=== PATIENT | female | born 1985 | race Caucasian/White ===

== ENCOUNTER 2018-02-19 08:21 | Observation (INO) ==
--- NOTE | 2018-02-19 09:24 | ED ---
HPI General Chief complaint: Respiratory Symptoms Stated complaint: Chest Pain/Vomiting Time Seen by Provider: 02/19/18 09:22 History of Present Illness HPI narrative: Patient is a 32-year-old female presents emergency department for evaluation of epigastric pain which started yesterday during lunch when she was eating chicken fingers. She states she threw up once at that time. She started to feel better and this morning during her morning coffee she threw up 2 more times an additional time while in the emergency department. States she has never had pain like this before. Is worsened by food. She has not tried anything to relieve her symptoms as of yet. No surgeries on her abdomen for otherwise fairly healthy. Per her by she was looking cool and clammy and she was referred to the emergency department for the possibility could be her heart. She has no family history of early heart disease, she is a cigarette smoker but no other risk factors. Section denies any respiratory complaints. Onset (ago): day(s) Location: abdomen Severity: moderate Quality: stabbing Pain Consistency: intermittent Associated symptoms: nausea/vomiting Related Data Home Medications Medication Instructions Recorded Confirmed citalopram 40 mg PO DAILY 02/19/18 02/19/18 clonazepam 0.5 mg PO TID PRN 02/19/18 02/19/18 Allergies Allergy/AdvReac Type Severity Reaction Status Date / Time No Known Allergies Allergy Unverified 02/19/18 08:30 Review of Systems Except as stated in HPI: all other systems reviewed are negative PMFSH Medical History Medical History Patient denies medical problems (Acute) Anxiety (Acute) Surgical History Surgical History No history of previous surgery (Acute) Family History Family History Other Family history of breast cancer Social History Social History Substance History: No History of Abuse Second Hand Smoke Exposure: Yes Smoking Status: Current every day smoker Tobacco Type: Cigarettes How Often Do You Have a Drink Containing Alcohol: 2 to 4 times a month Recent Travel in [facility] within the Last 8 Weeks: No Recent Out of Country Travel within the Last 8 Weeks: No Substance Abuse Detail Marijuana: Substance Use Status: Active Substance Frequency: weekends Immunization History Tetanus Immunization: Unsure Hx Influenza Vaccine This Season: No Exam Narrative Exam Narrative: GENERAL: Well-developed and nourished no obvious distress SKIN: Focused skin assessment warm/dry. HEAD: Atraumatic. Normocephalic. EYES: Pupils equal and round. No scleral icterus. No injection or drainage. ENT: No nasal bleeding or discharge. Mucous membranes pink and moist. NECK: Trachea midline. No JVD. CARDIOVASCULAR: Regular rate and rhythm. No murmur appreciated. RESPIRATORY: No accessory muscle use. Clear to auscultation. Breath sounds equal bilaterally. GASTROINTESTINAL: Abdomen soft, minimal tenderness in the epigastric region without any rebound or percussive tenderness, nondistended. Hepatic and splenic margins not palpable. MUSCULOSKELETAL: No obvious deformities. No clubbing. No cyanosis. No edema. NEUROLOGICAL: Awake and alert. No obvious cranial nerve deficits. Motor grossly within normal limits. Normal speech. PSYCHIATRIC: Appropriate mood and affect; insight and judgment normal. Course Initial Documented Vital Signs Temperature 97.8 F 02/19/18 08:25 Pulse Rate 89 02/19/18 08:25 Respiratory Rate 16 02/19/18 08:25 Blood Pressure 128/65 02/19/18 08:25 Pulse Oximetry 100 02/19/18 08:25 Last Documented Vital Signs Temperature 97.8 F 02/19/18 17:26 Pulse Rate 52 L 02/19/18 17:26 Respiratory Rate 16 02/19/18 17:26 Blood Pressure 110/68 02/19/18 17:26 Pulse Oximetry 100 02/19/18 08:25 Medical Decision Making MDM Narrative Medical decision making narrative: MDM: High Patient room to the emergency department, she appears significantly uncomfortable, she has multiple episodes of emesis in the emergency department, she did not respond to Zofran ODT, Phenergan, a dose of Reglan was given. Admission, a second dose of morphine was also given. CT the abdomen does show some inflammation in the right upper quadrant but no obvious gallstones. Lipase elevated. Discussed with Dr. Banuelos for admission. On further history the patient does states she had 2 shots in a drink last night, she had previously drank a lot heavier but does not consider herself an alcoholic. She has never had pancreatitis before Final diagnosis is acute pancreatitis peer Differential Diagnosis Differential Diagnosis: Pancreatitis, gastritis, gastroenteritis, cholecystitis peer Lab Data Result diagrams: 02/19/18 10:15 02/19/18 10:15 Lab Results 02/19/18 02/19/18 02/19/18 Range/Units 10:15 10:15 10:15 WBC 7.7 (4.0-11.0) th/mm3 RBC 4.99 (4.00-5.30) mil/mm3 Hgb 15.7 H (11.6-15.3) gm/dL Hct 45.9 (35.0-46.0) % MCV 91.8 (80.0-100.0) fL MCH 31.5 (27.0-34.0) pg MCHC 34.3 (32.0-36.0) % RDW 13.6 (11.6-17.2) % Plt Count 185 (150-450) th/mm3 MPV 8.9 (7.0-11.0) fL Neut % (Auto) 69.0 (16.0-70.0) % Lymph % (Auto) 19.9 (9.0-44.0) % [place] % (Auto) 9.3 H (0.0-8.0) % Eos % (Auto) 1.5 (0.0-4.0) % Baso % (Auto) 0.3 (0.0-2.0) % Neut # (Auto) 5.3 (1.8-7.7) th/mm3 Lymph # (Auto) 1.5 (1.0-4.8) th/mm3 [place] # (Auto) 0.7 (0.0-0.9) th/mm3 Eos # (Auto) 0.1 (0.0-0.4) th/mm3 Baso # (Auto) 0.0 (0.0-0.2) th/mm3 WBC Differential . Differential Comment Auto diff final Sodium 141 (136-145) meq/L Potassium 3.8 (3.5-5.1) meq/L Chloride 107 (98-107) meq/L Carbon Dioxide 24.0 (21.0-32.0) meq/L Anion Gap 10 (5-15) meq/L BUN 7 (7-18) mg/dL Creatinine 0.80 (0.50-1.00) mg/dL Estimated GFR 83 L (>89) mL/min Random Glucose 81 (74-106) mg/dL Calcium 9.2 (8.5-10.1) mg/dL Total Bilirubin 0.6 (0.2-1.0) mg/dL Direct Bilirubin (0.0-0.2) mg/dL Indirect Bilirubin (0.0-0.8) mg/dL AST 13 L (15-37) U/L ALT 18 (10-53) U/L Alkaline Phosphatase 66 (45-117) U/L Troponin I Less than 0.02 L (0.02-0.05) ng/mL C-Reactive Protein (0.00-0.30) mg/dL Total Protein 7.5 (6.4-8.2) g/dL Albumin 4.0 (3.4-5.0) g/dL Triglycerides (42-150) mg/dL Lipase 937 H (73-393) U/L Urine Color (Yellw/Straw) Urine Clarity (Clear) Urine pH (5.0-8.5) Ur Specific [place] (1.002-1.035) Urine Protein (Neg-Trace) mg/dL Urine Glucose (UA) (Negative) mg/dL Urine Ketones (Negative) mg/dL Urine Occult Blood (Negative) Urine Nitrate (Negative) Urine Bilirubin (Negative) Urine Urobilinogen (Less than 2) mg/dL Ur Leukocyte Esterase (Negative) Urine RBC (0-3) /hpf Urine WBC (0-5) /hpf Ur Squamous Epith Cells (0-5) /hpf Hyaline Casts (0-3) /lpf Urine Mucus (Occasional) /lpf Micro UA Comment Urine Culture Comments 02/19/18 02/19/18 02/19/18 Range/Units 10:30 16:13 16:13 WBC (4.0-11.0) th/mm3 RBC (4.00-5.30) mil/mm3 Hgb (11.6-15.3) gm/dL Hct (35.0-46.0) % MCV (80.0-100.0) fL MCH (27.0-34.0) pg MCHC (32.0-36.0) % RDW (11.6-17.2) % Plt Count (150-450) th/mm3 MPV (7.0-11.0) fL Neut % (Auto) (16.0-70.0) % Lymph % (Auto) (9.0-44.0) % [place] % (Auto) (0.0-8.0) % Eos % (Auto) (0.0-4.0) % Baso % (Auto) (0.0-2.0) % Neut # (Auto) (1.8-7.7) th/mm3 Lymph # (Auto) (1.0-4.8) th/mm3 [place] # (Auto) (0.0-0.9) th/mm3 Eos # (Auto) (0.0-0.4) th/mm3 Baso # (Auto) (0.0-0.2) th/mm3 WBC Differential Differential Comment Sodium (136-145) meq/L Potassium (3.5-5.1) meq/L Chloride (98-107) meq/L Carbon Dioxide (21.0-32.0) meq/L Anion Gap (5-15) meq/L BUN (7-18) mg/dL Creatinine (0.50-1.00) mg/dL Estimated GFR (>89) mL/min Random Glucose (74-106) mg/dL Calcium 8.4 L D (8.5-10.1) mg/dL Total Bilirubin 0.6 (0.2-1.0) mg/dL Direct Bilirubin 0.2 (0.0-0.2) mg/dL Indirect Bilirubin 0.4 (0.0-0.8) mg/dL AST 11 L (15-37) U/L ALT 16 (10-53) U/L Alkaline Phosphatase 70 (45-117) U/L Troponin I (0.02-0.05) ng/mL C-Reactive Protein Less than 0.29 (0.00-0.30) mg/dL Total Protein 7.0 (6.4-8.2) g/dL Albumin 4.0 (3.4-5.0) g/dL Triglycerides 71 (42-150) mg/dL Lipase (73-393) U/L Urine Color Yellow (Yellw/Straw) Urine Clarity Hazy H (Clear) Urine pH 6.0 (5.0-8.5) Ur Specific [place] 1.020 (1.002-1.035) Urine Protein Negative (Neg-Trace) mg/dL Urine Glucose (UA) Negative (Negative) mg/dL Urine Ketones Trace H (Negative) mg/dL Urine Occult Blood Negative (Negative) Urine Nitrate Negative (Negative) Urine Bilirubin Negative (Negative) Urine Urobilinogen 2.0 H (Less than 2) mg/dL Ur Leukocyte Esterase Negative (Negative) Urine RBC 1 (0-3) /hpf Urine WBC 2 (0-5) /hpf Ur Squamous Epith Cells 2 (0-5) /hpf Hyaline Casts 3 (0-3) /lpf Urine Mucus Many H (Occasional) /lpf Micro UA Comment Culture not ind Urine Culture Comments Culture not ind Imaging Data Radiologist's impression: ITS Impressions Chest X-Ray 02/19/18 00:00 CONCLUSION: No acute intrathoracic disease. Abdomen/Pelvis CT 02/19/18 11:40 CONCLUSION: 1. Mild nonspecific periportal edema. 2. Well-defined 3 cm right adnexal cyst. This is most likely a right ovarian cyst. No definite free fluid in the cul-de-sac. 3. IUD in the uterus. Discharge Plan Discharge Disposition Patient Disposition: 30 Still Patient Physicians Team ED Provider: Sam Spain Primary Care Provider: Figueroa Malone Attending Provider: Arjun Banuelos Status ED Status: Left Department Discharge Information Discharge Date/Time: 02/19/18 15:58
[2018-02-19] MEDS ORDERED: Aluminum/Magnesium/Simethacone Susp 30 ML UDC PO ONE (10:06)
[2018-02-19 10:38] LABS: Baso % (Auto) 0.3 % (0.0-2.0); Eos # (Auto) 0.1 th/mm3 (0.0-0.4); Eos % (Auto) 1.5 % (0.0-4.0); Hematocrit 45.9 % (35.0-46.0); Hemoglobin 15.7 gm/dL (11.6-15.3); Lymph # (Auto) 1.5 th/mm3 (1.0-4.8); Lymph % (Auto) 19.9 % (9.0-44.0); Mean Corpuscular HGB Conc 34.3 % (32.0-36.0); Mean Corpuscular Hemoglobin 31.5 pg (27.0-34.0); Mean Corpuscular Volume 91.8 fL (80.0-100.0); Mean Platelet Volume 8.9 fL (7.0-11.0); Mono # (Auto) 0.7 th/mm3 (0.0-0.9); Mono % (Auto) 9.3 % (0.0-8.0); Neut # (Auto) 5.3 th/mm3 (1.8-7.7); Platelet Count 185 th/mm3 (150-450); Red Blood Count 4.99 mil/mm3 (4.00-5.30); Red Cell Distribution Width 13.6 % (11.6-17.2); White Blood Count 7.7 th/mm3 (4.0-11.0)
[2018-02-19] MEDS ORDERED: Ketorolac Inj 30 MG/ML (IVP) Vial IV.PUSH ONE (10:57)
[2018-02-19 11:10] LABS: Alanine Aminotransferase 18 U/L (10-53)
[2018-02-19 11:12] LABS: Alkaline Phosphatase 66 U/L (45-117); Total Protein 7.5 g/dL (6.4-8.2)
[2018-02-19 11:13] LABS: Anion Gap 10 meq/L (5-15); Aspartate Aminotransferase 13 U/L (15-37); Blood Urea Nitrogen 7 mg/dL (7-18); Calcium 9.2 mg/dL (8.5-10.1); Chloride 107 meq/L (98-107); Glomerular Filtration Rate 83 mL/min (>89); Glucose,Random 81 mg/dL (74-106); Lipase 937 U/L (73-393); Potassium 3.8 meq/L (3.5-5.1); Sodium 141 meq/L (136-145)
[2018-02-19 11:13] LABS: Bilirubin,Urine Negative (Negative); Clarity,Urine Hazy (Clear); Color,Urine Yellow (Yellw/Straw); Glucose,Urine (UA) Negative (Negative); Hyaline Casts,Urine 3 /lpf (0-3); Leukocyte Esterase,Urine Negative (Negative); Mucus,Urine Many /lpf (Occasional); Nitrite,Urine Negative (Negative); Squamous Epithelial Cell,Urine 2 /hpf (0-5)
[2018-02-19] MEDS ORDERED: Morphine Inj 4 MG/ML Vial IV.PUSH ONE ×2 (11:55→15:14)
--- NOTE | 2018-02-19 15:25 | XR ---
EXAM DATE: 02/19/2018 3:16 PM EDT AGE/SEX: 32 years / Female INDICATIONS: Cough. CLINICAL DATA: This is the patient's initial encounter. Patient reports that signs and symptoms have been present for 1 day and indicates a pain score of 0/10. MEDICAL/SURGICAL HISTORY: None. . Umbilical hernia repair COMPARISON: No prior exams available for comparison. FINDINGS: A single AP view of the chest demonstrates the lungs to be symmetrically aerated without evidence of mass, infiltrate or effusion. The cardiomediastinal contours are unremarkable. Osseous structures a re intact. CONCLUSION: No acute intrathoracic disease. Electronically signed by: Anant Bloom MD 02/19/2018 3:24 PM EDT
[2018-02-19] MEDS: Morphine Sulfate Inj 8 MG/ML Vial IV.PUSH PRN (15:28)
[2018-02-19 17:09] LABS: Calcium 8.4 mg/dL (8.5-10.1); Triglycerides 71 mg/dL (42-150)
--- NOTE | 2018-02-19 17:56 | ECG ---
Date Performed: 02/19/2018 Time Performed: 08:35:17 PTAGE: 32 years EKG: Sinus rhythm POSSIBLE LEFT ATRIAL ENLARGEMENT BORDERLINE ECG NO PREVIOUS TRACING DOCTOR: Mackenzie Hudson Interpretating Date/Time 02/19/2018 17:54:59
--- NOTE | 2018-02-19 18:25 | P.HPIM ---
History of Present Illness Primary Care Physician: Figueroa Malone DO History of Present Illness: HPI narrative: Patient is a 32-year-old female presents emergency department for evaluation of epigastric pain which started yesterday during lunch when she was eating chicken fingers. She states she threw up once at that time. She started to feel better and this morning during her morning coffee she threw up 2 more times an additional time while in the emergency department. States she has never had pain like this before. Is worsened by food. She has not tried anything to relieve her symptoms as of yet. No surgeries on her abdomen for otherwise fairly healthy. Per her by she was looking cool and clammy and she was referred to the emergency department for the possibility could be her heart. She has no family history of early heart disease, she is a cigarette smoker but no other risk factors. Review of Systems Constitutional: Denies anorexia, Denies body ache(s), Denies chills, Denies fever(s), Denies night sweats, Denies poor appetite, Denies weight gain, Denies weight loss Eyes: Denies blind spots, Denies blurry vision, Denies change in vision, Denies double vision, Denies discharge, Denies loss of peripheral vision, Denies loss of vision, Denies other visual disturbances, Denies pain Ears, Nose, Mouth, and Throat: Denies bleeding gums, Denies difficulty swallowing, Denies dizziness, Denies headache(s), Denies hearing loss, Denies pain with swallowing, Denies poor balance, Denies ringing in the ears, Denies sore throat, Denies throat swelling, Denies tongue swelling Cardiovascular: Denies chest pain, Denies excessive sweating, Denies fainting, Denies fast heart rate, Denies generalized swelling, Denies irregular heart rhythm, Denies leg swelling, Denies lightheadedness, Denies slow heart rate Respiratory: Denies cough, Denies shortness of breath, Denies snoring, Denies wheezing Gastrointestinal: Reports abdominal pain, Reports nausea, Reports vomiting, Denies belching, Denies black, tarry stools, Denies bright, red blood in stools , Denies change in bowel habits, Denies change in stools, Denies coffee ground vomit, Denies constipation, Denies cramping, Denies difficulty swallowing, Denies heartburn, Denies incontinent of stools, Denies loose stools, Denies pain with swallowing, Denies vomiting blood Genitourinary: Denies abnormal vaginal bleeding, Denies blood in urine, Denies difficulty starting urination, Denies difficulty urinating, Denies frequent nighttime urination, Denies painful urination, Denies pelvic pain, Denies side pain, Denies urinary incontinence, Denies urinary hesitancy, Denies urinary urgency Musculoskeletal: Denies abnormal walking, Denies back pain, Denies body aches, Denies decreased muscle mass, Denies joint pain, Denies joint swelling, Denies muscle weakness, Denies neck pain, Denies numbness, Denies stiffness, Denies tingling Skin/Breast: Denies bleeding lesions, Denies change in skin color, Denies changing lesions, Denies itching, Denies lesions, Denies new lesions, Denies non -healing lesions, Denies redness, Denies sensitivity to light, Denies rash, Denies skin pain, Denies skin swelling, Denies skin ulcer, Denies sores, Denies unusual bruising, Denies wounds, Denies yellowing of the skin Neurologic: Denies abnormal hearing, Denies abnormal movements, Denies abnormal speech, Denies abnormal walking, Denies behavioral changes, Denies burning sensations, Denies confusion, Denies dizziness, Denies fainting, Denies frequent falls, Denies headache(s), Denies lack of coordination, Denies localized weakness, Denies loss of vision, Denies memory loss, Denies numbness, Denies other visual disturbances, Denies radiating pain, Denies restless legs, Denies convulsions, Denies seizure-like activity, Denies sensory deficit, Denies tingling/numbness/burning sensations, Denies tremor(s), Denies unsteadiness, Denies weakness Psychiatric: Denies abnormal sleep pattern, Denies anxiety, Denies behavioral changes, Denies change in appetite, Denies confusion, Denies depression, Denies difficulty concentrating, Denies hearing things others do not hear, Denies irritability, Denies lack of enjoyment, Denies memory loss, Denies mood swings, Denies panic attacks, Denies paranoia, Denies seeing things others do not see, Denies thoughts of hurting/killing others, Denies thoughts of hurting/killing yourself Endocrine: Denies cold intolerance, Denies excessive sweating, Denies fatigue, Denies flushing, Denies heat intolerance, Denies increased hunger, Denies increased thirst, Denies increased urination, Denies rapid, pounding, or irregular heartbeat Hematologic/Lymphatic: Denies easy bleeding, Denies easy bruising, Denies enlarged lymph nodes Allergic/Immunologic: Denies hives, Denies lip swelling, Denies throat swelling , Denies wheezing PMFSH - History History Provided By: Patient - Medical History Medical History: Medical History (Last Updated 02/19/18 @ 09:18 by Yusef Aquino RN) Anxiety Patient denies medical problems - Surgical History Surgical History: Surgical History (Last Updated 02/19/18 @ 09:02 by Yusef Aquino RN) No history of previous surgery - Family History Family History: Family History (Last Updated 02/19/18 @ 09:02 by Yusef Aquino RN) Other Family history of breast cancer - Tobacco History Second Hand Smoke Exposure: Yes Tobacco Use In Past 30 Days: Yes Smoking Status: Current every day smoker Tobacco Type: Cigarettes - Alcohol History How Often Do You Have a Drink Containing Alcohol: 2 to 4 times a month - Substance Use History Substance History: No History of Abuse - Substance Use Type Marijuana Status: Active Frequency: weekends - Travel History Recent Travel in the [place] Within the Last 8 Weeks: No Recent Travel Out of the Country Within the Last 8 Weeks: No - Immunization History Tetanus Immunization: Unsure Hx Influenza Vaccine This Season: No Medications and Allergies Active Medications: Active Medications Potassium Chloride/Sodium Chloride (Ns + Kcl 20 Meq Inj) 1,000 mls @ 84 mls/hr IV.CONT .[id number] DEDRICK Last Admin: 02/19/18 15:28 Dose: 84 mls/hr Morphine Sulfate (Morphine Inj) 5 mg IV.PUSH Q3H PRN PRN Reason: pain 1-10 Last Admin: 02/19/18 15:28 Dose: 5 mg Ondansetron HCl (Zofran Inj) 4 mg IV.PUSH Q6H PRN PRN Reason: NAUSEA OR VOMITING Sodium Chloride (Ns Flush) 2 ml IV.FLUSH PRN PRN PRN Reason: FLUSH AFTER USING IV ACCESS Sodium Chloride (Ns Flush) 2 ml IV.FLUSH BID [facility] Sodium Chloride (Ns Flush) 2 ml IV.FLUSH PRN PRN PRN Reason: FLUSH AFTER USING IV ACCESS Allergies Allergy/AdvReac Type Severity Reaction Status Date / Time No Known Allergies Allergy Unverified 02/19/18 08:30 Home Medications Medication Instructions Recorded Confirmed Type citalopram 40 mg PO DAILY 02/19/18 02/19/18 History clonazepam 0.5 mg PO TID PRN 02/19/18 02/19/18 History Exam Vital signs: Vital Signs 02/19/18 08:25 02/19/18 11:55 02/19/18 15:30 Temperature 97.8 F 98.5 F Pulse Rate 89 58 L Respiratory Rate 16 16 17 Blood Pressure 128/65 119/79 Pulse Oximetry 100 02/19/18 17:26 Temperature 97.8 F Pulse Rate 52 L Respiratory Rate 16 Blood Pressure 110/68 Pulse Oximetry Intake & Output 02/18/18 02/19/18 02/19/18 18:59 06:59 18:59 Weight 68.039 kg Results - Labs CBC & Chem 7: 02/19/18 10:15 02/21/18 06:40 Labs: Short CBC 02/19/18 Range/Units 10:15 WBC 7.7 (4.0-11.0) th/mm3 Hgb 15.7 H (11.6-15.3) gm/dL Hct 45.9 (35.0-46.0) % Plt Count 185 (150-450) th/mm3 BMP 02/19/18 02/19/18 10:15 16:13 Sodium 141 Potassium 3.8 Chloride 107 Carbon Dioxide 24.0 BUN 7 Creatinine 0.80 Calcium 9.2 8.4 L D Cardiac Enzymes 02/19/18 Range/Units 10:15 Troponin I Less than 0.02 L (0.02-0.05) ng/mL Liver Function 02/19/18 02/19/18 Range/Units 10:15 16:13 Total Bilirubin 0.6 0.6 (0.2-1.0) mg/dL Direct Bilirubin 0.2 (0.0-0.2) mg/dL AST 13 L 11 L (15-37) U/L ALT 18 16 (10-53) U/L Alkaline Phosphatase 66 70 (45-117) U/L Albumin 4.0 4.0 (3.4-5.0) g/dL Urine 02/19/18 Range/Units 10:30 Urine Color Yellow (Yellw/Straw) Urine Clarity Hazy H (Clear) Urine pH 6.0 (5.0-8.5) Ur Specific [place] 1.020 (1.002-1.035) Urine Protein Negative (Neg-Trace) mg/dL Urine Glucose (UA) Negative (Negative) mg/dL - Imaging Impressions Chest X-Ray 02/19/18 00:00 CONCLUSION: No acute intrathoracic disease. Abdomen/Pelvis CT 02/19/18 11:40 CONCLUSION: 1. Mild nonspecific periportal edema. 2. Well-defined 3 cm right adnexal cyst. This is most likely a right ovarian cyst. No definite free fluid in the cul-de-sac. 3. IUD in the uterus. Caprini VTE Risk Assessment Caprini VTE Risk Assessment: No/Low Risk (score <= 1) Caprini Risk Assessment Model: Point Value = 1 Point Value = 2 Point Value = 3 Point Value = 5 Age 41-60 Minor surgery BMI > 25 kg/m2 Swollen legs Varicose veins or History of unexplained or recurrent spontaneous Oral contraceptives or hormone replacement Sepsis (< 1 month) Serious lung disease, including pneumonia (< 1 month) Abnormal pulmonary function Acute myocardial infarction Congestive heart failure (< 1 month) History of inflammatory bowel disease Medical patient at bed rest Age 61-74 Arthroscopic surgery Major open surgery (> 45 min) Laparoscopic surgery (> 45 min) Malignancy Confined to bed (> 72 hours) Immobilizing plaster cast Central venous access Age >= 75 History of VTE Family history of VTE Factor V Leiden Prothrombin [id number] Lupus anticoagulant Anticardiolipin antibodies Elevated serum homocysteine Heparin-induced thrombocytopenia Other congenital or acquired thrombophilia Stroke (< 1 month) Elective arthroplasty Hip, pelvis, or leg fracture Acute spinal cord injury (< 1 month) Prophylaxis Regimen: Total Risk Factor Score Risk Level Prophylaxis Regimen 0-1 Low Early ambulation 2 Moderate Order ONE of the following: *Sequential Compression Device (SCD) *Heparin 5000 units SQ BID 3-4 Higher Order ONE of the following medications: *Heparin 5000 units SQ TID *Enoxaparin/Lovenox 40 mg SQ daily (WT < 150 kg, CrCl > 30 mL/min) *Enoxaparin/Lovenox 30 mg SQ daily (WT < 150 kg, CrCl > 10-29 mL/min) *Enoxaparin/Lovenox 30 mg SQ BID (WT < 150 kg, CrCl > 30 mL/min) AND/OR *Sequential Compression Device (SCD) 5 or more Highest Order ONE of the following medications: *Heparin 5000 units SQ TID (Preferred with Epidurals) *Enoxaparin/Lovenox 40 mg SQ daily (WT < 150 kg, CrCl > 30 mL/min) *Enoxaparin/Lovenox 30 mg SQ daily (WT < 150 kg, CrCl > 10-29 mL/min) *Enoxaparin/Lovenox 30 mg SQ BID (WT < 150 kg, CrCl > 30 mL/min) AND *Sequential Compression Device (SCD) H&P: Quality - VTE Deep Vein Thrombosis/Pulmonary Embolism Present on Admission: No
--- NOTE | 2018-02-19 19:19 | P.HPIM ---
<Renee Walter W - Last Filed: 02/19/18 19:10> History of Present Illness Primary Care Physician: Figueroa Malone DO Chief Complaint: stomach pain radiating to the back along with N/V History of Present Illness: This is a 32-year-old female patient with past medical history which includes anxiety. Patient reports approximately 2 weeks ago she had had more alcoholic beverages than normal for her, unable to quantify the exact amount. Patient had nausea with vomiting after lunch 02/17/18 been after having coffee on 2017 patient again felt nauseous and had vomiting she did not eat much that day and had one beer during 18 February [facility] yesterday. Patient reports this morning while working she had sharp/aching upper abdominal pain which radiated through to her back along with nausea she proceeded to the emergency department for further evaluation and treatment. Patient's lipase was noted to be elevated at 937. Patient reports her nausea/vomiting has resolved and she feels better since she has not eaten today. Patient denies fevers chills diarrhea constipation chest pain or shortness of breath. Patient does endorse anxiety as her fianc secondary to pancreatitis. Past medical history includes anxiety Surgical history patient denies prior surgeries Family history positive for breast cancer Social history Patient smokes 1 pack cigarettes every 3 days Patient reports social alcohol use 2-3 times per month Marijuana use mostly on the weekends not on a daily basis - Diagnosis (1) Pancreatitis Review of Systems All other systems reviewed negative except as stated in HPI [facility] - History History Provided By: Patient - Medical History Medical History: Medical History (Last Updated 02/19/18 @ 09:18 by Yusef Aquino RN) Patient denies medical problems Anxiety - Surgical History Surgical History: Surgical History (Last Updated 02/19/18 @ 09:02 by Yusef Aquino RN) No history of previous surgery - Family History Family History: Family History (Last Updated 02/19/18 @ 09:02 by Yusef Aquino RN) Other Family history of breast cancer - Tobacco History Second Hand Smoke Exposure: Yes Tobacco Use In Past 30 Days: Yes Smoking Status: Current every day smoker Tobacco Type: Cigarettes - Alcohol History How Often Do You Have a Drink Containing Alcohol: 2 to 4 times a month - Substance Use History Substance History: No History of Abuse - Substance Use Type Marijuana Status: Active Frequency: weekends - Travel History Recent Travel in the [facility] Within the Last 8 Weeks: No Recent Travel Out of the Country Within the Last 8 Weeks: No - Immunization History Tetanus Immunization: Unsure Hx Influenza Vaccine This Season: No Medications and Allergies Allergies Allergy/AdvReac Type Severity Reaction Status Date / Time No Known Allergies Allergy Unverified 02/19/18 08:30 Home Medications Medication Instructions Recorded Confirmed Type citalopram 40 mg PO DAILY 02/19/18 02/19/18 History clonazepam 0.5 mg PO TID PRN 02/19/18 02/19/18 History Active Medications: Active Medications Potassium Chloride/Sodium Chloride (Ns + Kcl 20 Meq Inj) 1,000 mls @ 84 mls/hr IV.CONT .[id number] DEDRICK Last Admin: 02/19/18 15:28 Dose: 84 mls/hr Morphine Sulfate (Morphine Inj) 5 mg IV.PUSH Q3H PRN PRN Reason: pain 1-10 Last Admin: 02/19/18 15:28 Dose: 5 mg Ondansetron HCl (Zofran Inj) 4 mg IV.PUSH Q6H PRN PRN Reason: NAUSEA OR VOMITING Sodium Chloride (Ns Flush) 2 ml IV.FLUSH PRN PRN PRN Reason: FLUSH AFTER USING IV ACCESS Sodium Chloride (Ns Flush) 2 ml IV.FLUSH BID DEDRICK Sodium Chloride (Ns Flush) 2 ml IV.FLUSH PRN PRN PRN Reason: FLUSH AFTER USING IV ACCESS Exam Vital signs: Vital Signs 02/19/18 08:25 02/19/18 11:55 02/19/18 15:30 Temperature 97.8 F 98.5 F Pulse Rate 89 58 L Respiratory Rate 16 16 17 Blood Pressure 128/65 119/79 Pulse Oximetry 100 02/19/18 17:26 Temperature 97.8 F Pulse Rate 52 L Respiratory Rate 16 Blood Pressure 110/68 Pulse Oximetry Intake & Output 02/19/18 02/19/18 02/20/18 06:59 18:59 06:59 Weight 68.039 kg Narrative: GENERAL: This is a well-nourished, well-developed patient, in no apparent distress. CARDIOVASCULAR: Regular rate and rhythm RESPIRATORY: Clear to auscultation. Breath sounds equal bilaterally. No wheezes , rales, or rhonchi. GASTROINTESTINAL: Abdomen soft, non-tender, nondistended. Normal active bowel sounds MUSCULOSKELETAL: Extremities without clubbing, cyanosis, or edema. NEURO: Alert & Oriented x4 to person, place, time, situation. Moves all ext x4 Results - Labs CBC & Chem 7: 02/19/18 10:15 02/19/18 10:15 - Imaging Impressions Chest X-Ray 02/19/18 00:00 CONCLUSION: No acute intrathoracic disease. Abdomen/Pelvis CT 02/19/18 11:40 CONCLUSION: 1. Mild nonspecific periportal edema. 2. Well-defined 3 cm right adnexal cyst. This is most likely a right ovarian cyst. No definite free fluid in the cul-de-sac. 3. IUD in the uterus. Caprini VTE Risk Assessment Caprini VTE Risk Assessment: No/Low Risk (score <= 1) Caprini Risk Assessment Model: Point Value = 1 Point Value = 2 Point Value = 3 Point Value = 5 Age 41-60 Minor surgery BMI > 25 kg/m2 Swollen legs Varicose veins or History of unexplained or recurrent spontaneous Oral contraceptives or hormone replacement Sepsis (< 1 month) Serious lung disease, including pneumonia (< 1 month) Abnormal pulmonary function Acute myocardial infarction Congestive heart failure (< 1 month) History of inflammatory bowel disease Medical patient at bed rest Age 61-74 Arthroscopic surgery Major open surgery (> 45 min) Laparoscopic surgery (> 45 min) Malignancy Confined to bed (> 72 hours) Immobilizing plaster cast Central venous access Age >= 75 History of VTE Family history of VTE Factor V Leiden Prothrombin [id number] Lupus anticoagulant Anticardiolipin antibodies Elevated serum homocysteine Heparin-induced thrombocytopenia Other congenital or acquired thrombophilia Stroke (< 1 month) Elective arthroplasty Hip, pelvis, or leg fracture Acute spinal cord injury (< 1 month) Prophylaxis Regimen: Total Risk Factor Score Risk Level Prophylaxis Regimen 0-1 Low Early ambulation 2 Moderate Order ONE of the following: *Sequential Compression Device (SCD) *Heparin 5000 units SQ BID 3-4 Higher Order ONE of the following medications: *Heparin 5000 units SQ TID *Enoxaparin/Lovenox 40 mg SQ daily (WT < 150 kg, CrCl > 30 mL/min) *Enoxaparin/Lovenox 30 mg SQ daily (WT < 150 kg, CrCl > 10-29 mL/min) *Enoxaparin/Lovenox 30 mg SQ BID (WT < 150 kg, CrCl > 30 mL/min) AND/OR *Sequential Compression Device (SCD) 5 or more Highest Order ONE of the following medications: *Heparin 5000 units SQ TID (Preferred with Epidurals) *Enoxaparin/Lovenox 40 mg SQ daily (WT < 150 kg, CrCl > 30 mL/min) *Enoxaparin/Lovenox 30 mg SQ daily (WT < 150 kg, CrCl > 10-29 mL/min) *Enoxaparin/Lovenox 30 mg SQ BID (WT < 150 kg, CrCl > 30 mL/min) AND *Sequential Compression Device (SCD) Assessment and Plan - Assessment (1) Pancreatitis Code(s): K85.90 - Acute pancreatitis without necrosis or infection, unspecified Status: Acute Plan: Alcoholic-induced pancreatitis Patient presented to emergency department for evaluation of abdominal pain associated with nausea and vomiting 2 days after patient large quantity of alcohol beverages 2 weeks ago Lipase on admission 937, total bilirubin 0.6, AST 11, ALT [address] abdomen pelvis reviewed and reveals 1. Mild nonspecific periportal edema. 2. Well-defined 3 cm right adnexal cyst. This is most likely a right ovarian cyst. No definite free fluid in the cul-de-sac. 3. IUD in the uterus. N.p.o. IV fluids for hydration Recheck lipase in a.m. Anxiety- chronic Continue patient's home medications SCDs for DVT prophylaxis H&P: Quality - VTE Deep Vein Thrombosis/Pulmonary Embolism Present on Admission: No <Arjun Banuelos - Last Filed: 03/09/18 21:50> History of Present Illness Primary Care Physician: Figueroa Malone DO - Diagnosis (1) Pancreatitis [facility] - Medical History Medical History: Medical History (Last Updated 02/19/18 @ 09:18 by Yusef Aquino RN) Patient denies medical problems Anxiety - Surgical History Surgical History: Surgical History (Last Updated 02/19/18 @ 09:02 by Yusef Aquino RN) No history of previous surgery - Family History Family History: Family History (Last Updated 02/19/18 @ 09:02 by Yusef Aquino RN) Other Family history of breast cancer Results - Labs CBC & Chem 7: 02/19/18 10:15 02/21/18 06:40 Caprini VTE Risk Assessment Caprini Risk Assessment Model: Point Value = 1 Point Value = 2 Point Value = 3 Point Value = 5 Age 41-60 Minor surgery BMI > 25 kg/m2 Swollen legs Varicose veins or History of unexplained or recurrent spontaneous Oral contraceptives or hormone replacement Sepsis (< 1 month) Serious lung disease, including pneumonia (< 1 month) Abnormal pulmonary function Acute myocardial infarction Congestive heart failure (< 1 month) History of inflammatory bowel disease Medical patient at bed rest Age 61-74 Arthroscopic surgery Major open surgery (> 45 min) Laparoscopic surgery (> 45 min) Malignancy Confined to bed (> 72 hours) Immobilizing plaster cast Central venous access Age >= 75 History of VTE Family history of VTE Factor V Leiden Prothrombin [id number] Lupus anticoagulant Anticardiolipin antibodies Elevated serum homocysteine Heparin-induced thrombocytopenia Other congenital or acquired thrombophilia Stroke (< 1 month) Elective arthroplasty Hip, pelvis, or leg fracture Acute spinal cord injury (< 1 month) Prophylaxis Regimen: Total Risk Factor Score Risk Level Prophylaxis Regimen 0-1 Low Early ambulation 2 Moderate Order ONE of the following: *Sequential Compression Device (SCD) *Heparin 5000 units SQ BID 3-4 Higher Order ONE of the following medications: *Heparin 5000 units SQ TID *Enoxaparin/Lovenox 40 mg SQ daily (WT < 150 kg, CrCl > 30 mL/min) *Enoxaparin/Lovenox 30 mg SQ daily (WT < 150 kg, CrCl > 10-29 mL/min) *Enoxaparin/Lovenox 30 mg SQ BID (WT < 150 kg, CrCl > 30 mL/min) AND/OR *Sequential Compression Device (SCD) 5 or more Highest Order ONE of the following medications: *Heparin 5000 units SQ TID (Preferred with Epidurals) *Enoxaparin/Lovenox 40 mg SQ daily (WT < 150 kg, CrCl > 30 mL/min) *Enoxaparin/Lovenox 30 mg SQ daily (WT < 150 kg, CrCl > 10-29 mL/min) *Enoxaparin/Lovenox 30 mg SQ BID (WT < 150 kg, CrCl > 30 mL/min) AND *Sequential Compression Device (SCD) Assessment and Plan - Assessment (1) Pancreatitis Code(s): K85.90 - Acute pancreatitis without necrosis or infection, unspecified Status: Acute Plan: Alcoholic-induced pancreatitis Patient presented to emergency department for evaluation of abdominal pain associated with nausea and vomiting 2 days after patient large quantity of alcohol beverages 2 weeks ago Lipase on admission 937, total bilirubin 0.6, AST 11, ALT 16 alk phos 70 -> lipase 1672, total bilirubin 1.1, AST 14, ALT 14, Alk phos 63 CT abdomen pelvis reviewed and reveals 1. Mild nonspecific periportal edema. 2. Well-defined 3 cm right adnexal cyst. This is most likely a right ovarian cyst. No definite free fluid in the cul-de-sac. 3. IUD in the uterus. N.p.o. -> advance to clears IV fluids for hydration Recheck lipase in a.m. Anxiety- chronic Continue patient's home medications SCDs for DVT prophylaxis - Attending Attestation Patient examined. Assessment and plan formulated with Renee SWEENEY I agree with the above.
[2018-02-20] MEDS: Morphine Sulfate Inj 8 MG/ML Vial IV.PUSH PRN ×2 (08:48→22:43)
[2018-02-20 12:53] LABS: Alanine Aminotransferase 16 U/L (10-53); Albumin 3.5 g/dL (3.4-5.0); Anion Gap 9 meq/L (5-15); Aspartate Aminotransferase 14 U/L (15-37); Blood Urea Nitrogen 12 mg/dL (7-18); Calcium 8.2 mg/dL (8.5-10.1); Carbon Dioxide 24.9 meq/L (21.0-32.0); Chloride 110 meq/L (98-107); Glomerular Filtration Rate 78 mL/min (>89); Glucose,Random 78 mg/dL (74-106); Sodium 144 meq/L (136-145)
[2018-02-20 12:55] LABS: Alkaline Phosphatase 63 U/L (45-117); Total Protein 6.3 g/dL (6.4-8.2)
[2018-02-20 15:10] LABS: Amphetamine Urine With Conf Neg (Neg); Benzodiazepine Urine With Conf Neg (Neg)
--- NOTE | 2018-02-20 15:51 | P.PNIM ---
Subjective Interval history: Follow up pancreatitis Patient reports feeling much better no N/V/D hungry asking for food Physical Exam Vital signs: Vital Signs 02/19/18 17:26 02/19/18 19:39 02/19/18 23:20 Temperature 97.8 F 98.6 F 98.2 F Pulse Rate 52 L 74 58 L Respiratory Rate 16 16 16 Blood Pressure 110/68 94/63 L 99/67 L Pulse Oximetry 96 97 02/20/18 04:00 02/20/18 07:54 02/20/18 12:00 Temperature 98.4 F 98.4 F 97.8 F Pulse Rate 66 56 L 92 H Respiratory Rate 19 20 16 Blood Pressure 101/59 L 128/75 111/69 Pulse Oximetry 98 98 99 Intake & Output 02/19/18 02/20/18 02/20/18 18:59 06:59 18:59 Intake Total 1000 / 1000 Balance 1000 / 1000 Weight 68.039 kg Intake: IV 1000 / 1000 NS + KCl 20 mEq Inj 1,000 ML @ 1000 / 1000 84 mls/hr IV.CONT .[id number] [facility] Rx#:[id number] Narrative: GENERAL: This is a well-nourished, well-developed patient, in no apparent distress. CARDIOVASCULAR: Regular rate and rhythm RESPIRATORY: Clear to auscultation. Breath sounds equal bilaterally. No wheezes , rales, or rhonchi. GASTROINTESTINAL: Abdomen soft, non-tender, nondistended. Normal active bowel sounds MUSCULOSKELETAL: Extremities without clubbing, cyanosis, or edema. NEURO: Alert & Oriented x4 to person, place, time, situation. Moves all ext x4 Results - Labs CBC & Chem 7: 02/19/18 10:15 02/21/18 06:40 Laboratory Results - last 24 hr 02/19/18 02/19/18 02/20/18 16:13 16:13 05:29 Sodium Potassium Chloride Carbon Dioxide Anion Gap BUN Creatinine Estimated GFR Random Glucose Calcium 8.4 L D Total Bilirubin 0.6 Direct Bilirubin 0.2 Indirect Bilirubin 0.4 AST 11 L ALT 16 Alkaline Phosphatase 70 C-Reactive Protein Less than 0.29 Total Protein 7.0 Albumin 4.0 Triglycerides 71 Lipase 1672 H Urine Opiates Screen Ur Barbiturates Screen Ur Amphetamine Screen U Benzodiazepines Scrn Urine Cocaine Screen U Cannabinoids Screen Serum Alcohol 0702/20/18 02/20/18 12:06 12:06 14:40 Sodium 144 Potassium 4.0 Chloride 110 H Carbon Dioxide 24.9 Anion Gap 9 BUN 12 Creatinine 0.84 Estimated GFR 78 L Random Glucose 78 Calcium 8.2 L Total Bilirubin 1.1 H Direct Bilirubin Indirect Bilirubin AST 14 L ALT 16 Alkaline Phosphatase 63 C-Reactive Protein Total Protein 6.3 L D Albumin 3.5 Triglycerides Lipase Urine Opiates Screen Pos H Ur Barbiturates Screen Neg Ur Amphetamine Screen Neg U Benzodiazepines Scrn Neg Urine Cocaine Screen Neg U Cannabinoids Screen Pos H Serum Alcohol Less than 3 Assessment and Plan - Assessment (1) Pancreatitis Code(s): K85.90 - Acute pancreatitis without necrosis or infection, unspecified Status: Acute Plan: Alcoholic-induced pancreatitis Patient presented to emergency department for evaluation of abdominal pain associated with nausea and vomiting 2 days after patient large quantity of alcohol beverages 2 weeks ago Lipase on admission 937, total bilirubin 0.6, AST 11, ALT 16 alk phos 70 -> lipase 1672, total bilirubin 1.1, AST 14, ALT 14, Alk phos 63 CT abdomen pelvis reviewed and reveals 1. Mild nonspecific periportal edema. 2. Well-defined 3 cm right adnexal cyst. This is most likely a right ovarian cyst. No definite free fluid in the cul-de-sac. 3. IUD in the uterus. N.p.o. -> advance to clears IV fluids for hydration Recheck lipase in a.m. Anxiety- chronic Continue patient's home medications SCDs for DVT prophylaxis - Attending Attestation Patient examined. Assessment and plan formulated with Renee SWEENEY I agree with the above.
[2018-02-21 09:32] LABS: Albumin 3.1 g/dL (3.4-5.0); Aspartate Aminotransferase 13 U/L (15-37); Blood Urea Nitrogen 8 mg/dL (7-18); Calcium 8.4 mg/dL (8.5-10.1); Chloride 109 meq/L (98-107); Glomerular Filtration Rate Greater Than 89 mL/min (>89); Glucose,Random 61 mg/dL (74-106); Sodium 141 meq/L (136-145)
[2018-02-21 09:33] LABS: Anion Gap 8 meq/L (5-15); Carbon Dioxide 23.7 meq/L (21.0-32.0)
[2018-02-21 09:38] LABS: Alanine Aminotransferase 14 U/L (10-53); Alkaline Phosphatase 56 U/L (45-117); Lipase 1030 U/L (73-393); Total Protein 5.9 g/dL (6.4-8.2)
--- NOTE | 2018-02-21 13:23 | US ---
EXAM DATE: 02/21/2018 1:15 PM EDT AGE/SEX: 32 years / Female INDICATIONS: Nausea and vomiting. Increasing bilirubin. CLINICAL DATA: This is the patient's initial encounter. Patient reports that signs and/or symptoms h ave been present for 3 days and indicates a pain score of 0/10. MEDICAL/SURGICAL HISTORY: . Anxiety . Umbilical hernia repair. COMPARISON: [facility] [place], CT ABDOMEN & PELVIS W CONTRAST, 02/19/2018. . MEASUREMENTS: Liver:__ 15.7 cm. Common Bile Duct:__ 5mm. FINDINGS: Liver: Liver is normal in echogenicity although there is some slight echogenic foci possibly from pe riportal edema as noted on previous CT scan. No definite intrahepatic biliary duct dilatation.. Portal Vein: Hepatopedal flow seen in portal vein. Common Duct: No intraluminal mass or stone visualized. Gallbladder: No evidence for cholelithiasis or pericholecystic fluid. Mild wall thickening measuring 4 mm. Pancreas: The visualized portions are within normal limits Right Kidney: Normal echotexture and cortical thickness. No mass or hydronephrosis. Other: None. CONCLUSION: 1. Periportal edema within the liver. 2. No evidence for cholelithiasis. 3. No dilatation of the biliary tree. 4. Mild gallbladder wall thickening Electronically signed by: Gentry Daniels MD 02/21/2018 1:22 PM EDT
--- NOTE | 2018-02-21 15:38 | P.DS ---
<Renee Walter W - Last Filed: 02/22/18 09:22> Date of admission: 02/19/18 14:56 Primary care physician: Figueroa Malone DO Attending physician on discharge: Arjun Banuelos Anticipated date of discharge: 02/21/18 Brief History from admission: This is a 32-year-old female patient with past medical history which includes anxiety. Patient reports approximately 2 weeks ago she had had more alcoholic beverages than normal for her, unable to quantify the exact amount. Patient had nausea with vomiting after lunch 02/17/18 been after having coffee on 2017 patient again felt nauseous and had vomiting she did not eat much that day and had one beer during 18 February [employer] yesterday. Patient reports this morning while working she had sharp/aching upper abdominal pain which radiated through to her back along with nausea she proceeded to the emergency department for further evaluation and treatment. Patient's lipase was noted to be elevated at 937. Patient reports her nausea/vomiting has resolved and she feels better since she has not eaten today. Patient denies fevers chills diarrhea constipation chest pain or shortness of breath. Patient does endorse anxiety as her fianc secondary to pancreatitis. Past medical history includes anxiety Surgical history patient denies prior surgeries Family history positive for breast cancer Social history Patient smokes 1 pack cigarettes every 3 days Patient reports social alcohol use 2-3 times per month Marijuana use mostly on the weekends not on a daily basis DS: Diagnosis - Discharge Diagnosis (1) Pancreatitis Status: Acute DS: Summary Hospital Course: Pancreatitis Alcoholic-induced pancreatitis Patient presented to emergency department for evaluation of abdominal pain associated with nausea and vomiting 2 days after patient large quantity of alcohol beverages 2 weeks ago Lipase on admission 937, total bilirubin 0.6, AST 11, ALT 16 alk phos 70 -> lipase 1672, total bilirubin 1.1, AST 14, ALT 14, Alk phos 63 CT abdomen pelvis reviewed and reveals 1. Mild nonspecific periportal edema. 2. Well-defined 3 cm right adnexal cyst. This is most likely a right ovarian cyst. No definite free fluid in the cul-de-sac. 3. IUD in the uterus. N.p.o. -> advance to clears -> advance to regular diet IV fluids for hydration lipase on admission 937 -> 1672 (7/6) -> 1030 (02/21) US gallbladder (02/21): 1. Periportal edema within the liver. 2. No evidence for cholelithiasis. 3. No dilatation of the biliary tree. 4. Mild gallbladder wall thickening Patient tolerating PO intake and lipase trending down Will DC home, patient will need to follow up with PCP after DC Anxiety- chronic Continue patient's home medications SCDs for DVT prophylaxis - Time Spent with Patient Total time spent providing and/or coordinating discharge services: Greater than 30 minutes - Quality: VTE Deep Vein Thrombosis/Pulmonary Embolism Present on Admission: No Exam Vital signs: Vital Signs 02/20/18 16:00 02/20/18 17:55 02/20/18 19:58 Temperature 98.1 F 98.9 F Pulse Rate 62 67 Respiratory Rate 18 20 16 Blood Pressure 108/67 101/65 Pulse Oximetry 99 98 02/20/18 23:52 02/21/18 04:18 02/21/18 08:00 Temperature 98.7 F 97.8 F 98 F Pulse Rate 78 69 82 Respiratory Rate 18 18 16 Blood Pressure 103/63 95/63 L 102/68 Pulse Oximetry 99 99 99 02/21/18 11:31 Temperature 98.1 F Pulse Rate 78 Respiratory Rate 17 Blood Pressure 107/76 Pulse Oximetry 98 Intake & Output 02/20/18 02/21/18 02/21/18 18:59 06:59 18:59 Intake Total 1000 / 1000 1000 / 1000 Balance 1000 / 1000 1000 / 1000 Weight 68.04 kg Intake: IV 1000 / 1000 1000 / 1000 NS + KCl 20 mEq Inj 1,000 ML @ 1000 / 1000 1000 / 1000 84 mls/hr IV.CONT .[id number] [facility] Rx#:[id number] Narrative: GENERAL: This is a well-nourished, well-developed patient, in no apparent distress. CARDIOVASCULAR: Regular rate and rhythm RESPIRATORY: Clear to auscultation. Breath sounds equal bilaterally. No wheezes , rales, or rhonchi. GASTROINTESTINAL: Abdomen soft, non-tender, nondistended. Normal active bowel sounds MUSCULOSKELETAL: Extremities without clubbing, cyanosis, or edema. NEURO: Alert & Oriented x4 to person, place, time, situation. Moves all ext x4 Results Procedures completed during hospitalization: none Labs on day of discharge: Labs from last 24 hours 02/21/18 06:40 Sodium 141 Potassium 4.0 Chloride 109 H Carbon Dioxide 23.7 Anion Gap 8 BUN 8 Creatinine 0.74 Estimated GFR Greater than 89 Random Glucose 61 L Calcium 8.4 L Total Bilirubin 1.3 H AST 13 L ALT 14 Alkaline Phosphatase 56 Total Protein 5.9 L Albumin 3.1 L Lipase 1030 H - Impressions ITS Impressions Chest X-Ray 02/19/18 00:00 CONCLUSION: No acute intrathoracic disease. Abdomen/Pelvis CT 02/19/18 11:40 CONCLUSION: 1. Mild nonspecific periportal edema. 2. Well-defined 3 cm right adnexal cyst. This is most likely a right ovarian cyst. No definite free fluid in the cul-de-sac. 3. IUD in the uterus. Gallbladder Ultrasound 02/21/18 00:00 CONCLUSION: 1. Periportal edema within the liver. 2. No evidence for cholelithiasis. 3. No dilatation of the biliary tree. 4. Mild gallbladder wall thickening <Arjun Banuelos - Last Filed: 03/09/18 21:52> Date of admission: 02/19/18 14:56 Primary care physician: Figueroa Malone DO DS: Diagnosis - Discharge Diagnosis (1) Pancreatitis Status: Acute DS: Summary Hospital Course: Patient examined. Assessment and plan formulated with Renee Walter PA-C. I agree with the above. - Time Spent with Patient Total time spent providing and/or coordinating discharge services: Greater than 30 minutes Results - Impressions ITS Impressions Chest X-Ray 02/19/18 00:00 CONCLUSION: No acute intrathoracic disease. Abdomen/Pelvis CT 02/19/18 11:40 CONCLUSION: 1. Mild nonspecific periportal edema. 2. Well-defined 3 cm right adnexal cyst. This is most likely a right ovarian cyst. No definite free fluid in the cul-de-sac. 3. IUD in the uterus. Gallbladder Ultrasound 02/21/18 00:00 CONCLUSION: 1. Periportal edema within the liver. 2. No evidence for cholelithiasis. 3. No dilatation of the biliary tree. 4. Mild gallbladder wall thickening Discharge Plan - Discharge Order Discharge Orders: Discharge Order (Routine); Ordered 02/21/18 Ordered By: Arjun Banuelos - Discharge Details Anticipated Discharge Date: 02/21/18 - Physicians Team Primary Care Provider: Figueroa Malone Attending Provider: Arjun Banuelos
== END 2018-02-21 18:49 | disposition home or self-care (01) ==
LOC: NEPD 08:21 → NEDA 08:21 → NEPFCDU 08:21
PROVIDERS: ADMIT Hospitalist; ATTEND Hospitalist